=== PATIENT | female | born 1990 | race Caucasian/White ===

== ENCOUNTER → 2021-03-15 | Emergency (ER) | payer OTHER ==
[~2021-03-15] VITALS: Ht 165.1 cm; Wt 95.3 kg
[~2021-03-15] MED LIST: IOHEXOL-300 100 ML VIAL IV ONE; IV NS 0.9% 250 ML IV ONE; IV NS 0.9% 500 ML BAG IV ONE; KETOROLAC TROMETHAMINE 15 MG/ML VIAL ONE; ONDANSETRON HCL/PF 4 MG/2 ML VIAL IV ONE; ONDANSETRON HCL/PF 4 MG/2 ML VIAL ONE
--- NOTE | 2021-03-15 08:30 | NUR ---
pt bib by c/o abd pain 5/10 pain scale started this morning, +nausea vomiting, s/p IVF x 1 week. alert and oriented x4. pt kept comfortable in bed. safety precautions immpemented
--- NOTE | 2021-03-15 08:45 | NUR ---
PIV INSERTED IN RAC G#18. GOOD BLOOD RETURN, INTACT, PATENT AND FLUSHING WELL
[2021-03-15] MEDS: KETOROLAC TROMETHAMINE INJ 30 MG/ML VIAL IV ONE ×2 (09:51→10:10)
[2021-03-15 10:00] LABS: BASOPHILS % (AUTO) 0.2 % (0.0-2.0); EOSINOPHILS % (AUTO) 0.6 % (0.0-6.0); HEMATOCRIT 37 % (33-45); HEMOGLOBIN 12.6 g/dL (11.5-14.8); LYMPHOCYTES # (AUTO) 1.6 K/uL (0.8-4.8); MEAN CORPUSCULAR HGB CONC 34 g/dl (31.0-36.0); MEAN CORPUSCULAR VOLUME 96 fL (82-100); MONOCYTES # (AUTO) 0.4 K/uL (0.1-1.30); MONOCYTES % (AUTO) 4.3 % (2.0-12.0); NEUTROPHILS # (AUTO) 6.9 K/uL (1.8-8.9); NEUTROPHILS % (AUTO) 76.9 % (43.0-81.0); PLATELET COUNT (AUTO) 265 K/uL (150-450); RED BLOOD CELL COUNT(AUTO) 3.91 MIL/uL (4.0-5.2)
[2021-03-15 10:03] LABS: BILIRUBIN,URINE SMALL (NEGATIVE); COLOR,URINE YELLOW (YELLOW); LEUKOCYTE ESTERASE ,URINE NEGATIVE (NEGATIVE); NITRITE, URINE NEGATIVE (NEGATIVE); PH,URINE 5.5 (5.0-8.0); PROTEIN,URINE TRACE mg/dl (NEGATIVE); UGLUCOSE NEGATIVE (NEGATIVE); UROBILINOGEN,URINE 0.2 EU/dL (0.2)
[2021-03-15 10:09] LABS: ALBUMIN 3.2 g/dL (3.4-5.0); BACTERIA,URINE Many /HPF (None Seen); BILIRUBIN,DIRECT 0.1 mg/dL (0.0-0.2); BILIRUBIN,TOTAL 0.3 mg/dL (0.2-1.0); CALCIUM, SERUM 8.1 mg/dL (8.5-10.1); CREATININE 0.7 mg/dL (0.6-1.3); SQUAMOUS EPITHELIAL CELL,UR Moderate /HPF (None Seen); TOTAL PROTEIN, SERUM 7.2 g/dL (6.4-8.2)
[2021-03-15 10:10] LABS: MUCUS,URINE Few /LPF (None Seen)
--- NOTE | 2021-03-15 10:17 | NUR ---
wheeled patient to ct accompanied by peg.
--- NOTE | 2021-03-15 10:33 | NUR ---
patient came back from ct.
[2021-03-15 12:00] VITALS: BP 120/83
--- NOTE | 2021-03-15 12:02 | NUR ---
Patient discharged to home in stable condition. Written and verbal after care instructions given. Patient verbalizes understanding of instruction.
== END | disposition home or self-care (01) ==
LOC: ER 08:23
DX: R10.32 Left lower quadrant pain (principal); R10.31 Right lower quadrant pain
CPT/HCPCS: 36415; 74177; 80048; 80076; 81001; 83690; 84703; 85025; 87086; 96374; 96375; 99285; J1885; J2405; J7040; J7050; Q9967

== ENCOUNTER 2022-06-15 09:52 | Emergency (ER) | payer OTHER ==
[~2022-06-15] VITALS: Ht 165.1 cm; Wt 111.1 kg
[2022-06-15 09:52] VITALS: BP 126/72
--- NOTE | 2022-06-15 09:52 | NUR ---
TO ER CHAIR 1. BIBS C/O HAVING TROUBLE SWALLOWING SINCE THIS MONRING, STATED THAT SHE WAS TRYING TO CLEAR HER THROAT AND FELT IF SHE HAS A SPASM. PAIN 5/10 ON PAIN SCALE, 9/10 THIS MORNING. PT IS CONCERNED OF HAVING A RESPIRATORY INFECTION. AWAITING MD CHAWLA.
--- NOTE | 2022-06-15 10:10 | NUR ---
AT BEDSIDE FOR EVAL
[2022-06-15] MEDS ORDERED: DEXAMETHASONE SOD PHOSPHATE 10 MG/ML VIAL ONE (10:29)
[2022-06-15] MEDS ORDERED: DEXAMETHASONE SOD PHOSPHATE 10 MG/ML VIAL IM ONE (10:30)
--- NOTE | 2022-06-15 10:40 | NUR ---
Patient discharged to home in stable condition. Written and verbal after care instructions given. Patient verbalizes understanding of instruction.
== END 2022-06-15 10:40 | disposition home or self-care (01) ==
LOC: ER 09:59
DX: J02.9 Acute pharyngitis, unspecified (principal)
CPT/HCPCS: 99283; 96372; J1100